=== PATIENT | female | born 1965 | race Caucasian/White ===

== ENCOUNTER 2017-08-08 12:48 | Emergency (ER) | payer OTHER ==
[~2017-08-08] VITALS: Ht 157.5 cm; Wt 93.8 kg
[~2017-08-08 12:48] MED LIST: AMOXIL500 MG OR; BACTRIM DS1 TAB PO; DIFLUCAN150 MG OR; FLAGYL500 MG PO; METRONIDAZOL500 MG PO; NO; NO MEDS; PROZAC20 MG PO; ULTRAM50 MG OR; VALTREX1 GM PO; ZITHROMAX250 MG PO; ZOFRAN4 MG OR
[2017-08-08] MEDS ORDERED: LISINOPRIL20 MG PO (13:51)
[2017-08-08] MEDS ORDERED: PRAVASTATIN SOD20 MG PO (13:52)
[2017-08-08] MEDS ORDERED: LORAZEPAM0.5 MG PO (13:52)
[2017-08-08] MEDS ORDERED: CITALOPRAM20 MG PO (13:53)
[2017-08-08] MEDS ORDERED: MOTRIN400 MG PO (13:59)
[2017-08-08 14:14] VITALS: BP 132/82
== END 2017-08-08 14:20 | disposition home or self-care (01) | DRG 556 ==
LOC: ED 12:48
DX: M25.561 Pain in right knee (principal)

== ENCOUNTER 2018-04-01 10:14 | Emergency (ER) | payer OTHER ==
[~2018-04-01] VITALS: Ht 157.5 cm; Wt 100.0 kg
[~2018-04-01 10:14] MED LIST changes: +CITALOPRAM20 MG PO; +LISINOPRIL20 MG PO; +LORAZEPAM0.5 MG PO; +MOTRIN400 MG PO; +PRAVASTATIN SOD20 MG PO
[2018-04-01] MEDS ORDERED: ESCITALOPRAM OX10 MG PO (10:55)
[2018-04-01 11:10] VITALS: BP 155/74
== END 2018-04-01 11:10 | disposition home or self-care (01) ==
LOC: ED 10:14
DX: S60.221A Contusion of right hand, initial encounter (principal); M25.541 Pain in joints of right hand; W23.1XXA Caught, crushed, jammed, or pinched between stationary objects, initial encounter; Y92.009 Unspecified place in unspecified non-institutional (private) residence as the place of occurrence of the external cause

== ENCOUNTER 2023-07-27 08:33 | Emergency (ER) | payer SELFPAY ==
[~2023-07-27] VITALS: Ht 157.5 cm; Wt 100.0 kg
[~2023-07-27 08:33] MED LIST changes: +ESCITALOPRAM OX10 MG PO
[2023-07-27] MEDS ORDERED: CEPHALEXIN500 M1 PO (09:01)
[2023-07-27 09:51] VITALS: BP 168/83
== END 2023-07-27 09:55 | disposition home or self-care (01) | DRG 603 ==
LOC: ED 08:33
DX: L02.413 Cutaneous abscess of right upper limb (principal); L03.113 Cellulitis of right upper limb